=== PATIENT | male | born 1970 | race Caucasian/White ===

== ENCOUNTER 2017-09-16 17:11 | Emergency (ER) | payer MEDICARE ==
[~2017-09-16] VITALS: Ht 182.9 cm; Wt 108.9 kg
[2017-09-16 17:20] VITALS: BP 148/95
[2017-09-16] MEDS ORDERED: OSEL75CA PO (19:22)
[2017-09-16] MEDS ORDERED: ONDA8TAB12 PO (19:22)
--- NOTE | 2017-09-16 19:22 | PHYS DOC ---
Past History Past Medical History: Hypertension, Kidney Stones Past Surgical History: Other Additional Past Surgical Histo: Rotator cuff bilateral; Cystoscopy with stone removal Smoking: Non-smoker Drug Use: Marijuana Social History Narrative: lives in [facility] Adult General Chief Complaint Chief Complaint: FLU SYMPTOM HPI HPI Patient is a 47 year old male who presents with fever and cough. He had a positive influenza screen done one week ago. He states he did not receive Tamiflu for a period he still has chills, no nausea vomiting. Some loose stool. He is still coughing. Initially had a sore throat that resolved. He is here with his family who is also being seen at this time. He lives in [place] but was over here to help babysit his granddaughter. His last dose of any antipyretic was this morning at 0900 a.m. and it was Motrin. No chest pain. Review of Systems Review of Systems Constitutional: POS fever & chills Eyes: Denies change in visual acuity, redness, or eye pain HENT: POS nasal congestion or sore throat Respiratory: POS cough but no shortness of breath Cardiovascular: No chest pain GI: Denies abdominal pain, nausea, vomiting, bloody stools; little loose diarrhea : Denies dysuria or hematuria Musculoskeletal: Denies back pain or joint pain Integument: Denies rash or skin lesions Neurologic: Denies headache, focal weakness or sensory changes All other systems were reviewed and found to be within normal limits, except as documented in this note. Current Medications Current Medications Current Medications Medications (Trade) Dose Ordered Sig/[facility] Start Time Stop Time Status Last Admin Dose Admin Acetaminophen (Tylenol) 1,000 mg 1X ONCE 09/16/17 19:30 09/16/17 19:31 Ibuprofen (Motrin) 600 mg 1X ONCE 09/16/17 19:30 09/16/17 19:31 Allergies Allergies Allergies Coded Allergies Type Severity Reaction Last Updated Verified No Known Drug Allergies 09/16/17 No Physical Exam Physical Exam Constitutional: Well developed, well nourished, no acute distress, non-toxic appearance. HENT: Normocephalic, atraumatic, TM clear bilaterally; bilateral external ears normal, oropharynx moist, no oral exudates, nose normal. Eyes: PERRLA, EOMI, conjunctiva normal, no discharge. Neck: Normal range of motion, no tenderness, supple, no stridor. Cardiovascular:Heart rate regular rhythm, no murmur Lungs & Thorax: Bilateral breath sounds clear to auscultation Abdomen: Bowel sounds normal, soft, no tenderness, no masses, no pulsatile masses. Skin: Warm, dry, no erythema, no rash. Back: No tenderness, no CVA tenderness. Extremities: No tenderness, no cyanosis, no clubbing, ROM intact, no edema. Neurologic: Alert and oriented X 3, normal motor function, normal sensory function, no focal deficits noted. Psychologic: Affect normal, judgement normal, mood normal. Current Patient Data Vital Signs Vital Signs Date Time Temp Pulse Resp B/P (MAP) Pulse Ox O2 Delivery O2 Flow Rate FiO2 09/16/17 17:20 102.2 93 24 96 Room Air Course & Med Decision Making Course & Med Decision Making Evaluated patient. He is nontoxic. He was already diagnosed with a positive influenza screen. Informed patient will start him on Tamiflu. Tylenol & Motrin for the discomfort and Tessalon Perles for the cough. I have spoken with the patient and/or caregivers. I have explained the patient' s condition, diagnosis and treatment plan based on the information available to me at this time. I have answered the patient's and/or caregiver's questions and addressed any concerns. The patient and/or caregivers have as good an understanding of the patient's diagnosis, condition and treatment plan as can be expected at this point. The patient's condition is stable and appropriate for discharge from the emergency department. The patient will pursue further outpatient evaluation with the primary care physician or other designated or consulting physician as outlined in the discharge instructions. The patient and/or caregivers are agreeable to this plan of care and follow-up instructions have been explained in detail. The patient and/or caregivers have received these instructions in written format and have expressed an understanding of the discharge instructions. The patient and/or caregivers are aware that any significant change in condition or worsening of symptoms should prompt an immediate return to this or the closest emergency department or a call to 911. Panda Disclaimer Dragon Disclaimer This electronic medical record was generated, in whole or in part, using a voice recognition dictation system. Departure Departure: Impression: Primary Impression: Viral syndrome Additional Impression: Influenza Disposition: HOME, SELF-CARE Condition: STABLE Referrals: PCP,KAI (PCP) Patient Instructions: Influenza A (H1N1) Additional Instructions: YOUR SYMPTOMS HAVE BEEN GOING ON FOR ONE WEEK. YOU ARE OUTSIDE THE WINDOW OF EFFECTIVENESS FOR TAMIFLU. YOU NEED TO TAKE TYLENOL EVERY 4 HOURS; THEN MOTRIN EVERY 6 HOURS. YOU TAKE THESE TWO AT THE SAME WITH THE TYLENOL EVERY 4 AND THE MOTRIN EVERY 6. Scripts Ondansetron (ZOFRAN ODT) 8 Mg Tab.rapdis 8 MG PO Q4-6HRS, #10 Prov: GEORGE LLOYD MD 09/16/17 Oseltamivir Phosphate (TAMIFLU) 75 Mg Capsule 1 CAP PO BID, #10 CAP Prov: GEORGE LLOYD MD 09/16/17 Problem Qualifiers GEORGE LLOYD MD Sep 16, 2017 19:22
[2017-09-16] MEDS ORDERED: ACETAMINOPHEN 500 MG TABLET PO ONE (19:30)
[2017-09-16] MEDS ORDERED: IBUPROFEN 600 MG TABLET. PO ONE (19:30)
== END 2017-09-16 19:28 | disposition home or self-care (01) ==
LOC: ER 17:11
DX: J11.1 Influenza due to unidentified influenza virus with other respiratory manifestations (principal); B34.9 Viral infection, unspecified; I10 Essential (primary) hypertension; F12.10 Cannabis abuse, uncomplicated; Z87.442 Personal history of urinary calculi
CPT/HCPCS: 99283

== ENCOUNTER 2019-07-19 17:19 | Emergency (ER) | payer BC, MEDICARE ==
[~2019-07-19 17:19] MED LIST: ONDA8TAB12 PO; OSEL75CA PO
--- NOTE | 2019-07-19 17:50 | ED.ADGEN ---
Past History Past Medical History: Hypertension, Kidney Stones Past Surgical History: Other Additional Past Surgical Histo: Rotator cuff bilateral; Cystoscopy with stone removal Smoking: Non-smoker Drug Use: Marijuana Adult General Chief Complaint Chief Complaint ".. I was cutting up some wood yesterday.. and one of the little chips got into Lt eye.. it was not too bad.. I washed it out really good.. but it is still irritation today..." HPI HPI Patient is a 49 year old male who presents with above hx and complaints eye Lt eye irritation after saw dust in the Lt eye while cutting wood. Patient was not wearing eye protection. Patient did rinse Lt eye at time to remove foreign body.- saw dust. Did use a Q-tip at that time to remove sawdust chip. Patient localizes pain into the left lateral portion of cornea. at 0300. Pt. denies any visual changes. Patient denies any history immunosuppression. Patient states he is up-to-date with tetanus. No recent travel. No specific ill contacts. Review of Systems Review of Systems Constitutional: Denies fever or chills [] Eyes: Denies change in visual acuity, redness, or eye pain [. The patient]complaints left eye irritation after foreign body HENT: Denies nasal congestion or sore throat [] Respiratory: Denies cough or shortness of breath [] Cardiovascular: No additional information not addressed in HPI [] GI: Denies abdominal pain, nausea, vomiting, bloody stools or diarrhea [] : Denies dysuria or hematuria [] Musculoskeletal: Denies back pain or joint pain [] Integument: Denies rash or skin lesions [] Neurologic: Denies headache, focal weakness or sensory changes [] Endocrine: Denies polyuria or polydipsia [] All other systems were reviewed and found to be within normal limits, except as documented in this note. Family History Family History Noncontributory Current Medications Current Medications Current Medications Medications (Trade) Dose Ordered Sig/[facility] Start Time Stop Time Status Last Admin Dose Admin Erythromycin (Romycin) 0.25 inch 1X ONCE 07/19/19 18:30 07/19/19 18:31 DC 07/19/19 18:30 0.25 INCH Fluorescein Sodium (Ful-Nelsy 1mg) 1 strip 1X ONCE 07/19/19 18:30 07/19/19 18:31 DC 07/19/19 18:30 1 STRIP Sodium Chloride (Normal Saline Flush) 10 ml PRN DAILY PRN 07/19/19 18:30 07/19/19 20:02 DC Tetracaine HCl (Tetracaine) 1 drop 1X ONCE 07/19/19 18:30 07/19/19 18:31 DC 07/19/19 18:30 1 DROP Allergies Allergies Allergies Coded Allergies Type Severity Reaction Last Updated Verified No Known Drug Allergies 09/16/17 No Physical Exam Physical Exam Constitutional: Mild distress, non-toxic appearance. [] HENT: Normocephalic, atraumatic, bilateral external ears normal, oropharynx moist, no oral exudates, nose normal. [] Eyes: PERRLA, EOMI, conjunctiva left eye injection, no discharge. [] Has a corneal abrasion at approximately 3:00 with area of ear irritation on sclera at this location. No obvious anterior cell or flare. Did have Fluroscene uptake. Neck: Normal range of motion, no tenderness, supple, no stridor. [] Cardiovascular:Heart rate regular rhythm, no murmur [] Lungs & Thorax: Bilateral breath sounds clear to auscultation [] Abdomen: Bowel sounds normal, soft, no tenderness, no masses, no pulsatile masses. Obese. Skin: Warm, dry, no erythema, no rash. [] Back: No tenderness, no CVA tenderness. [] Extremities: No tenderness, no cyanosis, no clubbing, ROM intact, no edema. [] Neurologic: Alert and oriented X 3, normal motor function, normal sensory function, no focal deficits noted. [] Psychologic: Affect anxious, judgement normal, mood normal. [] Current Patient Data Vital Signs Vital Signs Date Time Temp Pulse Resp B/P (MAP) Pulse Ox O2 Delivery O2 Flow Rate FiO2 07/19/19 19:56 76 16 154/98 (116) 96 Room Air 07/19/19 18:20 98.0 EKG EKG [] Radiology/Procedures Radiology/Procedures [] Course & Med Decision Making Course & Med Decision Making Pertinent Labs and Imaging studies reviewed. (See chart for details) Left eye irrigated extensively with normal saline, after tetracaine. Slit lap. = abrasion 0300, cornea and sclera area. Patient to do not rub his Lt eye.. Patient apply a small amount of erythromycin ointment to left eye 4 times a day. Patient take Tylenol and ibuprofen pain. Patient follow-up with. Patient return of any increased redness, decreased vision, or pain. Must follow-up ophthalmology. [] Final Impression Final Impression 1. Hx of Foreign Body[]-Saw dust 2. Corneal and Sclera Abrasion Lt Lateral at 0300. Dragon Disclaimer Dragon Disclaimer This electronic medical record was generated, in whole or in part, using a voice recognition dictation system. Dragon Disclaimer This chart was dictated in whole or in part using Voice Recognition software in a busy, high-work load, and often noisy Emergency Department environment. It may contain unintended and wholly unrecognized errors or omissions. HALEY SILVERIO MD Jul 19, 2019 17:50
[2019-07-19] MEDS ORDERED: ERYTHROMYCIN 0.5% OPHTH OINTMENT 1GM TUBE. OS ONE (18:30)
[2019-07-19] MEDS ORDERED: 0.9 % SODIUM CHLORIDE 10 ML DISP.SYRIN. IV PRN (18:30)
[2019-07-19] MEDS ORDERED: FLUORESCEIN 1MG EYE STRIP. OS ONE (18:30)
[2019-07-19] MEDS ORDERED: TETRACAINE 0.5% OPHTH SOLUTION 4ML BOTTLE. OS ONE (18:30)
[2019-07-19] MEDS ORDERED: HYDR-1179 PO (19:25)
[2019-07-19 19:56] VITALS: BP 154/98
== END 2019-07-19 19:56 | disposition home or self-care (01) ==
LOC: ER 17:19
DX: S05.02XA Injury of conjunctiva and corneal abrasion without foreign body, left eye, initial encounter (principal); I10 Essential (primary) hypertension; Z87.442 Personal history of urinary calculi; Y29.XXXA Contact with blunt object, undetermined intent, initial encounter; Y93.89 Activity, other specified; Y92.89 Other specified places as the place of occurrence of the external cause; Y99.8 Other external cause status
CPT/HCPCS: 99283

== ENCOUNTER 2021-09-07 16:39 | Emergency (ER) | payer BC ==
[~2021-09-07] VITALS: Ht 185.4 cm; Wt 114.5 kg
[~2021-09-07 16:39] MED LIST changes: +HYDR-1179 PO
[2021-09-07] MEDS ORDERED: FLUORESCEIN 1MG EYE STRIP. OD ONE (18:30)
[2021-09-07] MEDS ORDERED: TETRACAINE 0.5% OPHTH SOLUTION 4ML BOTTLE. OD ONE (18:30)
[2021-09-07 18:31] VITALS: BP 159/96
[2021-09-07] MEDS ORDERED: DIPHTH,PERTUSS(ACELL),TET TOX 0.5 ML DISP.SYRIN. VAX IM ONE (18:45)
[2021-09-07] MEDS ORDERED: DIPH,PERTUSS(ACELL),TET VAC/PF 0.5 ML SYRINGE. VAX IM ONE ×2 (18:52→18:56)
--- NOTE | 2021-09-07 18:53 | PHYS DOC ---
Past History Past Medical History: Hypertension Additional Past Medical Histor: Chronic back and shoulder pain (YUSEF ZAZUETA APRN) Past Surgical History: Other Additional Past Surgical Histo: Rotator cuff bilateral; Cystoscopy with stone removal (YUSEF ZAZUETA APRN) Smoking: Non-smoker Alcohol Use: None Drug Use: None (YUSEF ZAZUETA APRN) General Adult EDM: Chief Complaint: EYE PROBLEMS HPI: HPI: Patient is a 51-year-old male that is here with complaint of right eye pain. Patient states this morning he was lying in bed with his grandson and his grandson poked him in the eye, he states since that time he has had right eye pain. Patient states he can see out of the eye he says is just very painful he feels like he has a foreign object in the eye and he has been rubbing it. Patient is unsure when his last tetanus shot was he states is greater than 5 years. (YUSEF ZAZUETA APRN) Review of Systems: Review of Systems: Constitutional: Denies fever or chills Eyes: Right eye pain HENT: Denies nasal congestion or sore throat Respiratory: Denies cough or shortness of breath Cardiovascular: Denies chest pain or edema GI: Denies abdominal pain, nausea, vomiting, bloody stools or diarrhea : Denies dysuria Musculoskeletal: Denies back pain or joint pain Integument: Denies rash Neurologic: Denies headache, focal weakness or sensory changes Endocrine: Denies polyuria or polydipsia Lymphatic: Denies swollen glands Psychiatric: Denies depression or anxiety (YUSEF ZAZUETA APRN) Current Medications: Current Meds: Current Medications Medications (Trade) Dose Ordered Sig/[facility] Start Time Stop Time Status Last Admin Dose Admin Diphtheria/ Tetanus/Acell Pertussis (Boostrix) 0.5 ml ONCE ONCE 09/07/21 18:45 09/07/21 18:50 DC Fluorescein Sodium (Ful-Nelsy 1mg) 1 strip 1X ONCE 09/07/21 18:30 09/07/21 18:33 DC 09/07/21 18:30 1 STRIP Tetracaine HCl (Tetracaine) 1 drop 1X ONCE 09/07/21 18:30 09/07/21 18:33 DC 09/07/21 18:30 1 DROP (YUSEF ZAZUETA APRN) Allergies: Allergies: Allergies Coded Allergies Type Severity Reaction Last Updated Verified No Known Drug Allergies 09/16/17 No (YUSEF ZAZUETA APRN) Physical Exam: PE: Constitutional: Well developed, well nourished, mild distress, non-toxic appearance. [] HENT: Normocephalic, atraumatic, bilateral external ears normal, oropharynx moist, no oral exudates, nose normal. [] Eyes: PERRLA, EOMI, conjunctiva red, Neck: Normal range of motion, no tenderness, supple, no stridor. [] Cardiovascular:Heart rate regular rhythm, no murmur [] Lungs & Thorax: Bilateral breath sounds clear to auscultation [] Abdomen: Bowel sounds normal, soft, no tenderness, no masses, no pulsatile masses. [] Skin: Warm, dry, no erythema, no rash. [] Back: No tenderness, no CVA tenderness. [] Extremities: No tenderness, no cyanosis, no clubbing, ROM intact, no edema. [] Neurologic: Alert and oriented X 3, normal motor function, normal sensory function, no focal deficits noted. [] Psychologic: Affect normal, judgement normal, mood normal. [] (YUSEF ZAZUETA APRN) Current Patient Data: Vital Signs: Vital Signs Date Time Temp Pulse Resp B/P (MAP) Pulse Ox O2 Delivery O2 Flow Rate FiO2 09/07/21 18:31 97.4 71 16 159/96 (117) 97 (YUSEF ZAZUETA APRN) EKG: EKG: [] (YUSEF ZAZUETA APRN) Radiology/Procedures: Radiology/Procedures: Indication: Right eye pain Procedure: The patient was placed in the appropriate position. Anesthesia was 4 drops of tetracaine 0.5% instilled into the right eye. Fluorescein staining was done. Hagen lamp was used to highlight the eye abrasion noted over the iris area at the 7:00 marjorie. The patient tolerated the procedure well. No complications (YUSEF ZAZUETA APRN) Heart Score: C/O Chest Pain: N/A Risk Factors: Risk Factors: DM, Current or recent (<one month) smoker, HTN, HLP, family history of CAD, obesity. Risk Scores: Score 0 - 3: 2.5% MACE over next 6 weeks - Discharge Home Score 4 - 6: 20.3% MACE over next 6 weeks - Admit for Clinical Observation Score 7 - 10: 72.7% MACE over next 6 weeks - Early Invasive Strategies (YUSEF ZAZUETA APRN) Course & Med Decision Making: Course & Med Decision Making Pertinent Labs and Imaging studies reviewed. (See chart for details) Hagen lamp exam completed corneal abrasion seen will instill erythromycin ointment into eye and will send prescription for ointment as well. Will refer patient to an toll line repairer for further evaluation and further treatment of this corneal abrasion. Patient states that he has pain medications at home when asked about ordering pain medications he says he is on chronic opioids for chronic pain issues. (YUSEF ZAZUETA APRN) Dragon Disclaimer: Dragon Disclaimer: This electronic medical record was generated, in whole or in part, using a voice recognition dictation system. (YUSEF ZAZUETA APRN) Attending Co-Sign The patient was seen and interviewed as well as examined at the bedside. The chart was reviewed. The case was discussed. Agree with the plan of care. (MODE CUNHA DO) Departure Departure: Impression: Primary Impression: Corneal abrasion, right Qualified Codes: S05.01XA - Injury of conjunctiva and corneal abrasion without foreign body, right eye, initial encounter Disposition: HOME / SELF CARE / HOMELESS Condition: STABLE Referrals: LAURA OSORIO MD (PCP) JORDY JHA DO Patient Instructions: Eye - Corneal Abrasion Additional Instructions: Erythromycin ointment instill quarter inch of ointment to the right eye 4 times daily for 5 days. Take your pain medications as needed for moderate to severe pain in your eye. May use ice pack as well for localized pain relief. Follow-up with the toll line repairer in the referral section for further management of your corneal abrasion. Follow-up in the next 3 to 5 days. Scripts Erythromycin Base (Erythromycin) 1 Gm Oint...g. 0.25 INCH OD QID for corneal abrasion, #1 MISC use ointment for 5 days total. Prov: YUSEF ZAZUETA APRN 09/07/21 YUSEF ZAZUETA APRN Sep 07, 2021 18:53 MODE CUNHA DO Sep 09, 2021 14:23
[2021-09-07] MEDS ORDERED: ERYTHROMYCIN 0.5% OPHTH OINTMENT 1GM TUBE. OD ONE (19:00)
[2021-09-07] MEDS ORDERED: ERYT1OIN3 OD (19:04)
[2021-09-07] MEDS ORDERED: IBUPROFEN 800 MG TABLET. PO ONE ×2 (19:31→19:45)
== END 2021-09-07 19:35 | disposition home or self-care (01) ==
LOC: ER 16:39
DX: S05.01XA Injury of conjunctiva and corneal abrasion without foreign body, right eye, initial encounter (principal); I10 Essential (primary) hypertension; W50.0XXA Accidental hit or strike by another person, initial encounter; Y93.89 Activity, other specified; Y92.89 Other specified places as the place of occurrence of the external cause; Y99.8 Other external cause status
CPT/HCPCS: 90471; 90715; 99284